=== PATIENT | male | born 1990 | race Caucasian/White ===

== ENCOUNTER 2017-01-31 10:38 | Emergency (ER) | payer OTHER ==
[~2017-01-31] VITALS: Ht 177.8 cm; Wt 83.9 kg
[~2017-01-31 10:38] MED LIST: AUGMENTIN 875-1 EACH PO; NAPROSYN500 M1 PO; PERCOCET 325 MG1 TA2 PO; PERIDEX 480 ML480 ML PO
[2017-01-31 10:43] VITALS: BP 129/73
[2017-01-31] MEDS ORDERED: DOXYCYCLINE HY100 M4 PO (11:01)
--- NOTE | 2017-01-31 11:01 | ED ANIMAL BITE/WOUND CHECK ---
History of Present Illness General Chief Complaint: Animal/Insect Bite Stated Complaint: INSECT BITE Source: patient Exam Limitations: no limitations Vital Signs & Intake/Output Vital Signs & Intake/Output Vital Signs Date Time Temp Pulse Resp B/P B/P Pulse O2 O2 Flow FiO2 Mean Ox Delivery Rate 01/31 1043 97.7 50 16 129/73 98 Room Air Allergies Coded Allergies: latex (Severe, ITCHING AND RASH 12/30/15) cinnamon (Intermediate, TOUNGE ITCHY/SWELLING 12/30/15) Reconcile Medications Doxycycline Hyclate 100 MG TABLET 1 TAB PO BID tick bite Triage Note: PT STATES HE WOULD LIKE TO BE CHECKED FOR LYME DISEASE. PT STATES HE WAS BIT BY A TICK YESTERDAY AND HE THINKS HE HAS A RING LIKE RASH TO RIGHT LOWER EXT. Triage Nurses Notes Reviewed? yes Onset: Abrupt Duration: day(s): Timing: recent history Injury Environment: home No Modifying Factors: none HPI: 26-year-old male comes into emergency room for further evaluation after getting multiple tick bites. Patient reports that he pulled off a tick on his right leg today. Unsure how many days but does not think it was more than a few days. Patient reports that he has had multiple tick bites over last few weeks. Some associated joint pain. No bull's-eye rash. No fever. Denies any other associated symptoms. Patient comes in for further evaluation. (MINOR GOODMAN) Past History Travel History Traveled to [place] past 21 day No Medical History Any Pertinent Medical History? see below for history Respiratory: asthma Tetanus Vaccine: 12/30/15 Surgical History Surgical History: non-contributory Psychosocial History What is your primary language Korean Tobacco Use: Current Daily Use Daily Tobacco Use Amount/Type: => 5 Cigarettes daily ETOH Use: occasional use Illicit Drug Use: marijuana Family History Hx Contributory? No (MINOR GOODMAN) Review of Systems Review of Systems Constitutional: Reports: no symptoms. EENTM: Reports: no symptoms. Respiratory: Reports: no symptoms. Cardiovascular: Reports: no symptoms. GI: Reports: no symptoms. Genitourinary: Reports: no symptoms. Musculoskeletal: Reports: see HPI. Skin: Reports: see HPI. Neurological/Psychological: Reports: no symptoms. Hematologic/Endocrine: Reports: no symptoms. Immunologic/Allergic: Reports: no symptoms. All Other Systems: Reviewed and Negative (MINOR GOODMAN) Physical Exam Physical Exam General Appearance: well developed/nourished, mild distress Head: atraumatic Eyes: Bilateral: normal appearance. Ears, Nose, Throat: normal ENT inspection, hearing grossly normal Neck: normal inspection Respiratory: no respiratory distress Back: normal inspection Extremities: normal range of motion, small red patch half a centimeter right calf Neurologic/Psych: awake, alert, oriented x 3, normal mood/affect Skin: intact, normal color, warm/dry Lymphatic: no anterior cervical phyllis (MINOR GOODMAN) Progress Differential Diagnosis: abscess, cellulitis, joint infection, tenosysnovitis, Lyme disease Plan of Care: Orders Procedure Date/time Status LYME TITRE 01/31 1101 Active Laboratory Tests 01/31/17 1106: Lyme Disease Antibody Pending Comments: 01/31/2017 11:19:01 AM Due to the unclear duration of the tick bite patient started on 2 week course of doxycycline and Lyme titer sent. Patient told he needs a repeat Lyme titer in 4 weeks. Clinically looks well otherwise. No apparent distress. (MINOR GOODMAN) Departure Departure Disposition: HOME OR SELF CARE Condition: Stable Clinical Impression Primary Impression: Tick bite Referrals: TANNER CUMMINGS,NISHANT Donis (PCP/Family) Additional Instructions: Take doxycycline as prescribed. Follow-up with your primary care doctor. Return if any concerns worsening symptoms. Get retested for Lyme disease in 4 weeks. Please go over all results of today's visit with your primary care doctor. Contact your primary care doctor to let them know you were here in the emergency room. There may be nonspecific findings which may not be related to your visit today here in the emergency room but may require further evaluation and chronic monitoring by your primary care doctor. If you had a laceration today the chance of foreign body always remains. You should follow-up with your primary care doctor for recheck in 3-5 days for a wound check. If you had an x-ray done there is a chance that a fracture could have been missed on initial read and you should follow-up with your primary care doctor for repeat x-rays if symptoms persist. If your blood pressure was elevated here in the emergency room please have rechecked by her primary care doctor within the next 48 hours by your primary care doctor. If you were prescribed a narcotic here in the emergency room or any type of controlled substances you're not allowed to drive while taking this medication or operate any type of heavy machinery. Narcotics can make you feel lightheaded dizziness nausea and can cause constipation. You may need to medicinal plant picker a stool softener. Thank you for choosing [facility] emergency room. Please return to the emergency room immediately if you have any other concerns worsening of symptoms. Departure Forms: Customer Survey General Discharge Information Prescriptions: Current Visit Scripts Doxycycline Hyclate 1 TAB PO BID #28 TAB (MINOR GOODMAN) PA/FUNERAL HOME DIRECTOR Co-Sign Statement Statement: ED Attending supervision documentation- [] I saw and evaluated the patient. I have also reviewed all the pertinent lab results and diagnostic results. I agree with the findings and the plan of care as documented in the PA's/FUNERAL HOME DIRECTOR's documentation. [X] I have reviewed the ED Record and agree with the PA's/FUNERAL HOME DIRECTOR's documentation. [] Additions or exceptions (if any) to the PAs/FUNERAL HOME DIRECTOR's note and plan are summarized below: [] (MARCIANO CUMMINGS,RUSS Euceda)
== END 2017-01-31 11:10 ==
LOC: ERH 10:38
DX: S80.861A Insect bite (nonvenomous), right lower leg, initial encounter (principal); W57.XXXA Bitten or stung by nonvenomous insect and other nonvenomous arthropods, initial encounter; Y93.9 Activity, unspecified; Y92.9 Unspecified place or not applicable
CPT/HCPCS: 86618

== ENCOUNTER 2017-02-16 08:15 | Emergency (ER) | payer OTHER ==
[~2017-02-16] VITALS: Ht 177.8 cm; Wt 81.6 kg
[~2017-02-16 08:15] MED LIST changes: +DOXYCYCLINE HY100 M4 PO
--- NOTE | 2017-02-16 08:53 | ED GENERAL ADULT ---
History of Present Illness General Chief Complaint: Trunk Injury Stated Complaint: R SIDED RIB PAIN/SOB Source: patient Exam Limitations: no limitations Vital Signs & Intake/Output Vital Signs & Intake/Output Vital Signs Date Time Temp Pulse Resp B/P B/P Pulse O2 O2 Flow FiO2 Mean Ox Delivery Rate 02/16 1019 97.5 56 20 145/65 98 Room Air 02/16 0830 98.2 72 18 143/90 98 Room Air Allergies Coded Allergies: latex (Severe, ITCHING AND RASH 12/30/15) cinnamon (Intermediate, TOUNGE ITCHY/SWELLING 12/30/15) Reconcile Medications Doxycycline Hyclate 100 MG TABLET 1 TAB PO BID tick bite Triage Note: C/O R SIDED CHEST PAIN SINCE YESTERDAY, WITH SOB. STATES PAIN RADIATES TO BACK UNDER SHOULDER BLADE. 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 Triage Nurses Notes Reviewed? yes Onset: Abrupt Duration: day(s): Timing: recent history HPI: 02/16/17 8:40 AM 26-year-old male presents to the emergency department complaining of right-sided chest pain. According to the patient he was in his usual state of health until yesterday when he had a sudden onset of severe right-sided chest pain. The onset of the symptoms were abrupt, the duration was the past 24 hours, the severity is significant as his symptoms required him to come to the emergency department for care. He has severe pain when he takes a deep breath. No fever. He does smoke. Past History Travel History Traveled to [place] past 21 day No Medical History Any Pertinent Medical History? see below for history Respiratory: asthma Tetanus Vaccine: 12/30/15 Surgical History Surgical History: non-contributory Psychosocial History What is your primary language Polish Tobacco Use: Current Daily Use Daily Tobacco Use Amount/Type: => 5 Cigarettes daily ETOH Use: denies use Family History Hx Contributory? No Review of Systems Review of Systems Constitutional: Denies: fever. EENTM: Reports: no symptoms. Respiratory: Reports: short of breath. Cardiovascular: Reports: chest pain. GI: Denies: abdominal pain. Genitourinary: Reports: no symptoms. Musculoskeletal: Reports: no symptoms. Skin: Reports: no symptoms. Neurological/Psychological: Reports: no symptoms. Hematologic/Endocrine: Reports: no symptoms. Immunologic/Allergic: Reports: no symptoms. Physical Exam Physical Exam General Appearance: well developed/nourished, alert, awake, anxious Head: atraumatic, normal appearance Eyes: Bilateral: normal appearance, PERRL, EOMI. Ears, Nose, Throat: normal pharynx, normal ENT inspection Neck: normal inspection, supple Respiratory: normal breath sounds, no respiratory distress Cardiovascular: regular rate/rhythm Peripheral Pulses: 4+ radial (R), 4+ radial (L) Gastrointestinal: soft, non-tender Back: normal range of motion Extremities: normal range of motion Neurologic/Psych: no motor/sensory deficits, awake, alert, oriented x 3 Skin: intact, normal color, warm/dry Core Measures ACS in differential dx? No CVA/TIA Diagnosis: No Severe Sepsis Present: No Septic Shock Present: No Progress Differential Diagnoses I considered the following diagnoses in my evaluation of the patient: [ Myocarditis, pneumothorax, pleurisy, pneumonia, costochondritis] Plan of Care: Orders Procedure Date/time Status TROPONIN LEVEL 02/16 08 Complete COMPREHENSIVE METABOLIC PANEL 02/16 0853 Complete CBC WITHOUT DIFFERENTIAL 02/16 0853 Complete EKG 02/16 0831 Active Laboratory Tests 02/16/17 0900: Anion Gap 9, Estimated GFR > 60, BUN/Creatinine Ratio 22.5, Glucose 91, Calcium 8.8, Total Bilirubin 0.6, AST 25, ALT 33, Alkaline Phosphatase 61, Troponin I < 0.01, Total Protein 6.3, Albumin 3.8, Globulin 2.5, Albumin/Globulin Ratio 1.5, CBC w Diff NO MAN DIFF REQ, RBC 4.16 L, MCV 87.8, MCH 29.4, RDW 13.6, MPV 8.7, Gran % 73.3, Lymphocytes % 18.1 L, Monocytes % 6.8, Eosinophils % 1.6, Basophils % 0.2, Absolute Granulocytes 4.7, Absolute Lymphocytes 1.2, Absolute Monocytes 0.4, Absolute Eosinophils 0.1, Absolute Basophils 0, PUBS MCHC 33.5 Initial ED EKG: NSR, IST DEGREE A-V BLOCK Departure Departure Disposition: STILL A PATIENT Condition: Stable Clinical Impression Primary Impression: Chest pain Referrals: TANNER CUMMINGS,NISHANT Donis (PCP/Family) Departure Forms: Customer Survey General Discharge Information Comments Considered the diagnosis of pulmonary embolism PERC score is low risk. Labs unremarkable. EKG is negative. He's had the pain for 2 days. Chest x-ray was negative for pneumothorax. He does admit to smoking cigarettes on a daily basis. I suspect he has pleuritis. Critical Care Note Critical Care Note Critical Care Time: non-applicable
[2017-02-16 09:05] LABS: ABSOLUTE BASOPHIL COUNT 0 /CUMM (0.0-0.2); ABSOLUTE EOSINOPHIL COUNT 0.1 /CUMM (0.0-0.7); ABSOLUTE GRANULOCYTE CT 4.7 /CUMM (1.4-6.5); ABSOLUTE LYMPH COUNT 1.2 /CUMM (1.2-3.4); ABSOLUTE MONOCYTE COUNT 0.4 /CUMM (0.10-0.60); BASOPHIL % 0.2 % (0.0-2.0); EOSINOPHIL % 1.6 % (0-5); GRANULOCYTE % 73.3 % (42.2-75.2); HEMATOCRIT 36.5 % (42-52); MEAN CORPUSCULAR HGB 29.4 PG (27.0-31.0); MEAN CORPUSCULAR HGB CONC 33.5 G/DL (33.0-37.0); MEAN CORPUSCULAR VOLUME 87.8 FL (80.0-94.0); MEAN PLATELET VOLUME 8.7 FL (7.4-10.4); PLATELET COUNT 177 /CUMM (130-400); RBC DISTRIBUTION WIDTH 13.6 % (11.5-14.5); RED BLOOD CELL CT 4.16 /CUMM (4.70-6.10); WHITE BLOOD CELL COUNT 6.4 /CUMM (4.8-10.8)
--- NOTE | 2017-02-16 09:33 | RADIOLOGY REPORT ---
EXAMINATION: CHEST 2 VIEWS CLINICAL INFORMATION: Shortness of breath, chest pain. COMPARISON: 06/02/2012. TECHNIQUE: PA and lateral views of the chest were obtained. FINDINGS: The cardiac silhouette is not enlarged. The mediastinal and hilar contours are unremarkable. There are neither pleural effusions nor pneumothoraces. There are no consolidations. The osseous structures are unremarkable. IMPRESSION: No evidence for acute disease.
[2017-02-16 10:19] VITALS: BP 145/65
[2017-02-16] MEDS ORDERED: IBUPROFEN600 M1 PO (10:23)
== END 2017-02-16 10:26 ==
LOC: ERH 08:15
PROVIDERS: Emergency Medicine
DX: R07.9 Chest pain, unspecified (principal)
CPT/HCPCS: 93005; 93010

== ENCOUNTER 2017-02-17 17:07 | Emergency (ER) | payer OTHER ==
[~2017-02-17] VITALS: Ht 177.8 cm; Wt 839.1 kg
[~2017-02-17 17:07] MED LIST changes: +IBUPROFEN600 M1 PO
[2017-02-17 17:13] VITALS: BP 155/97
--- NOTE | 2017-02-17 17:41 | ED GI/GU/ABDOMINAL COMPLAINT ---
History of Present Illness General Chief Complaint: Male Genitourinary Problems Stated Complaint: RT SIDED TESTICLE PAIN,DISCOLORATION,NO INJ. Source: patient, old records Exam Limitations: no limitations Vital Signs & Intake/Output Vital Signs & Intake/Output Vital Signs Date Time Temp Pulse Resp B/P B/P Pulse O2 O2 Flow FiO2 Mean Ox Delivery Rate 02/17 1713 97.8 73 16 155/97 98 Room Air ED Intake and Output 02/18 0000 02/17 1200 Intake Total Output Total 400 Balance -400 Output, Urine 400 Patient 1850 lb Weight Weight Reported by Patient Measurement Method Allergies Coded Allergies: latex (Severe, ITCHING AND RASH 12/30/15) cinnamon (Intermediate, TOUNGE ITCHY/SWELLING 12/30/15) Reconcile Medications Ibuprofen 600 MG TABLET 1 TAB PO TID pain with food Triage Note: PT STATES HE WAS STANDING AND ALL OF THE SUDDEN FELT PAIN IN HIS RIGHT TESTICLE. PT REPORTS THAT HE ALMOST VOMITED AFTER FEELING THE PAIN AND WENT TO HIS TRUCK AND HIS TESTICLE WAS PURPLE AND REMIANS THAT COLOR. Triage Nurses Notes Reviewed? yes Onset: Abrupt Duration: hour(s): (1), constant Timing: recent history Quality/Severity: aching, sharpness, severe, stabbing Severity Numbers: 9 Location: scrotal Radiation: no radiation Activities at Onset: none Prior Abdominal Problems: none No Modifying Factors: none Associated Symptoms: denies HPI: 26-year-old male presents the ER for evaluation complaining of sudden onset of bruising pain to his right testicle it came on while he was standing. He denies recent trauma injury or heavy lifting. He denies history of similar symptoms in the past no hematuria dysuria urgency frequency. He is sexual active however denies recent trauma no history of sexually transmitted disease. He is not taken anything for his symptoms no fever no chills. The patient denies any pain at this time. No modifying factors she states prior to coming he felt nauseous secondary to the pain however is not taken anything (NISHANT MILIAN) Past History Travel History Traveled to [place] past 21 day No Medical History Any Pertinent Medical History? see below for history Respiratory: asthma Psychiatric: BIPOLAR DEPRESSION Tetanus Vaccine: 12/30/15 Surgical History Surgical History: non-contributory Psychosocial History What is your primary language Turkish Tobacco Use: Current Daily Use Daily Tobacco Use Amount/Type: => 5 Cigarettes daily ETOH Use: denies use Illicit Drug Use: marijuana Family History Hx Contributory? No (NISHANT MILIAN) Review of Systems Review of Systems Constitutional: Reports: see HPI. All Other Systems: Reviewed and Negative Comments Review of systems: See HPI, All other systems negative. Constitutional, no chills no fever, no malaise no weight loss HEENT: No visual changes no sore throat no congestion, no ear pain Cardiovascular: No chest pain , no palpitation , no orthopnea Skin: no rashes, no change in skin Respiratory: No dyspnea no cough no sputum no hemoptysis GI: No nausea no vomiting, no diarrhea, no bloating/constipation : No dysuria No hematuria, no frequency, no discharge Muscle skeletal: No joint pain, no joint swelling, no back pain, no neck pain, Neurologic: No numbness no confusion, no headache Psych: No stress no depression,. Heme/endocrine: No bruising no bleeding Immunology: No lymphadenopathy (NISHANT MILIAN) Physical Exam Physical Exam General Appearance: well developed/nourished, no apparent distress, alert, awake Gastrointestinal: soft Comments: Well-developed well-nourished person in no acute distress HEENT: Normal EENT exam; PERRL, EOMI, no nystagmus. HEAD is atraumatic. moist mucous membranes. Neck: Supple, normal range of motion Back: Nontender, no CVA tenderness. Full range of motion Cardiovascular: Regular rate and rhythms no murmurs rubs Respiratory: Right-sided chest wall is tender to palpation no ecchymosis No respiratory distress. Patient speaking in full complete sentences. Breath sounds clear to auscultation bilaterally: NO W/R/R Abdomen: Soft, nontender nondistended, no appreciable organomegaly. Normal bowel sounds. No rebound/guarding, No appreciable enlargement of the abdominal aorta, No ascites. Male : Small 2 cm area of ecchymosis noted to the anterior scrotum nontender, no palpable mass, testes nontender. No scrotal swelling or mases, No lesions/ discharge. Extremity: No edema, full range of motion of extremities Neuro: Alert oriented x3, motor sensory normal There were no obvious focal neurologic abnormalities. Skin: No appreciable rash on exposed skin, skin is warm and dry. Psych: Mood and affect is normal, memory and judgment is normal. Core Measures ACS in differential dx? No Severe Sepsis Present: No Septic Shock Present: No (NISHANT MILIAN) Progress Differential Diagnosis: orchitis, prostatitis, STD, testicular torsion, ureterolithiasis, urinary retention, urethritis, UTI/pyelo, varicocele, hydrocele Plan of Care: Orders Procedure Date/time Status CULTURE,URINE 02/17 1710 Active URINALYSIS 02/17 1710 Complete Laboratory Tests 02/17/171819: Urine Color YEL, Urine Clarity CLEAR, Urine pH 7.0, Ur Specific [place] 1.020, Urine Protein NEG, Urine Ketones NEG, Urine Nitrite NEG, Urine Bilirubin NEG, Urine Urobilinogen 1.0, Ur Leukocyte Esterase NEG, Ur Microscopic EXAM NOT REQUIRED, Urine Hemoglobin NEG, Urine Glucose NEG Microbiology 02/18 1820 URINE ROUT: Urine Culture - RECD us ordered from triage, pt taken from wr to us 1819 patient was seen by myself immediately being placed in the room from ultrasound he is declining anything for pain he denies pain at this time ultrasound labs ordered old records reviewed from patient's previous visit yesterday. CASE d/w dr mendez 1914 I discussed with the patient at length all of their results. He is declining anything for pain denies pain at this time I had an extensive conversation regarding need for close follow up with their primary care physician/UROLOGIST this week as well as return precautions. I answered all of their questions, they feel comfortable with the plan and follow-up care. (MALLORIE CORREA,NISHANT) Diagnostic Imaging: Viewed by Me: Ultrasound. Discussed w/RAD: Ultrasound. Radiology Impression: PATIENT: RJ BECKMAN II PRESENT AGE: 26 PATIENT ACCOUNT NO: [id number] : 90 LOCATION: [facility] ORDERING PHYSICIAN: NISHANT CORREA SERVICE DATE: 02/17/17-1715 EXAM TYPE: US - US-TESTICULAR EXAMINATION: US SCROTUM CLINICAL INFORMATION: Sided onset right testicular pain. Evaluate for testicular torsion. COMPARISON: None TECHNIQUE: A sonogram of the scrotum was performed assessing berman-scale appearance and color Doppler flow. FINDINGS: RIGHT: Right testicle measures 5.2 x 3.0 x 3.3 cm, volume 27 mL. Parenchymal echotexture is normal. No focal testicular parenchymal lesions are visualized. Normal symmetric intratesticular flow is visualized. Right epididymal head is normal in size. Tiny right hydrocele. No varicocele. Mild soft tissue edema overlying the right testicle. LEFT: Left testicle measures 4.7 x 2.2 x 3.0 cm, volume 22 mL. Parenchymal echotexture is normal. No focal testicular parenchymal lesions are visualized. Normal symmetric intratesticular flow is visualized. Left epididymal head is normal in size. Tiny left hydrocele. No varicocele. IMPRESSION: Normal arterial and venous waveforms of both testicles. Tiny bilateral hydroceles. Mild soft tissue edema overlying the right testicle. DICTATED BY: OSEAS JOSEPH MD DATE/TIME DICTATED:02/17/171857 TRUCK SALES REPRESENTATIVE:ALEXANDER DATE/TIME TRANSCRIBED:02/17/171857 CONFIDENTIAL, DO NOT COPY WITHOUT APPROPRIATE AUTHORIZATION. <Electronically signed in Other Vendor System> SIGNED BY: OSEAS JOSEPH MD 02/17/171906 Initial ED EKG: none (NISHANT MILIAN) Departure Departure Time of Disposition: 1914 Disposition: HOME OR SELF CARE Condition: Stable Clinical Impression Primary Impression: Hydrocele Referrals: NISHANT HART MD (PCP/Family) PATTI TERRY MD Additional Instructions: wear briefs with high support, ice packs, tylenol or motrin for pain. follow up with urologist dr terry. return to the ER with any concerns Departure Forms: Customer Survey General Discharge Information (NISHANT MILIAN) PA/TOPSTITCHER LOCKSTITCH Co-Sign Statement Statement: ED Attending supervision documentation- [] I saw and evaluated the patient. I have also reviewed all the pertinent lab results and diagnostic results. I agree with the findings and the plan of care as documented in the PA's/TOPSTITCHER LOCKSTITCH's documentation. [X] I have reviewed the ED Record and agree with the PA's/TOPSTITCHER LOCKSTITCH's documentation. [] Additions or exceptions (if any) to the PAs/TOPSTITCHER LOCKSTITCH's note and plan are summarized below: [] (DEE DEE CUMMINGS,ESTEBAN)
--- NOTE | 2017-02-17 19:07 | ULTRASOUND REPORT ---
EXAMINATION: US SCROTUM CLINICAL INFORMATION: Sided onset right testicular pain. Evaluate for testicular torsion. COMPARISON: None TECHNIQUE: A sonogram of the scrotum was performed assessing berman-scale appearance and color Doppler flow. FINDINGS: RIGHT: Right testicle measures 5.2 x 3.0 x 3.3 cm, volume 27 mL. Parenchymal echotexture is normal. No focal testicular parenchymal lesions are visualized. Normal symmetric intratesticular flow is visualized. Right epididymal head is normal in size. Tiny right hydrocele. No varicocele. Mild soft tissue edema overlying the right testicle. LEFT: Left testicle measures 4.7 x 2.2 x 3.0 cm, volume 22 mL. Parenchymal echotexture is normal. No focal testicular parenchymal lesions are visualized. Normal symmetric intratesticular flow is visualized. Left epididymal head is normal in size. Tiny left hydrocele. No varicocele. IMPRESSION: Normal arterial and venous waveforms of both testicles. Tiny bilateral hydroceles. Mild soft tissue edema overlying the right testicle.
== END 2017-02-17 19:26 ==
LOC: ERH 17:07
DX: N43.3 Hydrocele, unspecified (principal)
CPT/HCPCS: 81003; 87086